=== PATIENT | female | born 1975 | race Caucasian/White ===

== ENCOUNTER 2018-02-05 21:26 | Emergency (ER) | payer OTHER ==
[~2018-02-05] VITALS: Ht 162.6 cm; Wt 95.9 kg
[2018-02-05 21:57] VITALS: BP 156/110; Ht 162.6 cm; Wt 95.9 kg
== END 2018-02-06 02:00 | disposition left against medical advice (07) ==
LOC: D.ER 21:26
DX: M79.605 Pain in left leg (principal)